=== PATIENT | female | born 1990 | race Caucasian/White ===

== ENCOUNTER → 2017-03-28 | Outpatient (CLI) | payer BC ==
--- NOTE | 2017-03-28 11:10 | REP ---
Clinical: Radiculopathy . Technique: AP, lateral, bilateral oblique, and coned-down views. Findings: Alignment and lordosis is maintained. The vertebral bodies including transverse process and spinous processes are intact and normal. There is no evidence for acute fracture / compression injury or subluxation. No evidence for spondylolysis or spondylolisthesis. No significant degenerative change is noted. Impression: Normal lumbosacral spine radiograph series. Signed by Sheldon Brock MD 03/28/2017 11:01 A
== END ==
LOC: M RAD 10:38
PROVIDERS: ATTEND Nurse Practitioner Family
DX: M79.1 Myalgia (principal); M25.519 Pain in unspecified shoulder; M54.5 Low back pain